=== PATIENT | male | born 1950 | race Caucasian/White ===

== ENCOUNTER 2016-10-21 17:44 | Inpatient (IN) | payer OTHER, BC ==
[~2016-10-21] VITALS: Ht 172.7 cm; Wt 53.2 kg
[2016-10-21 19:35] VITALS: BP 107/77
[2016-10-21] MEDS: ENOXAPARIN 40 MG/0.4 ML DISP.SYRIN. SQ ONE ×2 (20:45→22:23)
[2016-10-21] MEDS ORDERED: MORPHINE SULFATE 2 MG/ML DISP.SYRIN. IV PRN (20:45)
[2016-10-21] MEDS ORDERED: HALOPERIDOL LACT 5 MG/ML VIAL. IVP PRN (20:45)
[2016-10-21] MEDS ORDERED: LORAZEPAM 2 MG/ML VIAL IV PRN ×2 (20:45)
[2016-10-21] MEDS ORDERED: NITROGLYCERIN SUBLINGUAL 0.4 MG BOTTLE OF 25. SL PRN (20:45)
[2016-10-21] MEDS ORDERED: DIPHENHYDRAMINE 50 MG/ML VIAL IVP PRN (20:45)
[2016-10-21] MEDS ORDERED: LORAZEPAM 1 MG TABLET. PO PRN (20:45)
--- NOTE | 2016-10-21 20:46 | PDOC1 ---
History and Physical Date of Admission Date of Admission DATE: 10/21/16 TIME: 20:41 Identification/Chief Complaint Chief Complaint chest pain Source Source: Chart review, Patient History of Present Illness History of Present Illness I was called by Dr. Valladares at [facility] to transfer Mr. Ruiz perseted there with angina at rest, r./o ACS with trop neg X3 CV consult eval, and MPI spect showed LVEf 74%, moderate reversible defect inferolateral wall Transferred here for LH cath he asked RN for a beer X3, I asked him how much he drinks "not much, I dont have anything before breakfast" vodka, then beer, then wine. Past Medical History Cardiovascular: No pertinent hx Pulmonary: No pertinent hx GI: No pertinent hx Heme/Onc: No pertinent hx Hepatobiliary: No pertinent hx Psych: No pertinent hx ENT: No pertinent hx Renal/: Other (unk. cr. 1.4 at [facility]) Past Surgical History Past Surgical History: No pertinent history Family History Family History ,prior chief architect, 11 years Family History: No Significant Social History Smoke: <1 pack per day ALCOHOL: heavy Drugs: None Current Problem List Problem List Problems Medical Problems: (1) Chest pain Status: Acute Problems: Current Medications Current Medications Current Medications Multivitamins (Thera M Plus) 1 tab DAILY PO ; Start 10/22/16 at 09:00; Status UNV Folic Acid (Folic Acid) 1 mg DAILY PO ; Start 10/22/16 at 09:00; Status UNV Lorazepam (Ativan) 2 mg PRN Q1HR PRN IV For CIWA 8-14; Start 10/21/16 at 20:45 ; Status UNV Lorazepam (Ativan) 4 mg PRN Q1HR PRN IV For CIWA 15 or greater; Start 10/21/16 at 20:45; Status UNV Haloperidol Lactate (Haldol) 5 mg PRN Q4HRS PRN IVP Hallucinatns,Confusn, Delirium; Start 10/21/16 at 20:45; Status UNV Diphenhydramine HCl (Benadryl) 25 mg PRN Q15MIN PRN IVP EPS symptoms 2'Haldol admin; Start 10/21/16 at 20:45; Status UNV Lorazepam (Ativan) 1 mg PRN Q6HRS PRN PO ANXIETY / AGITATION; Start 10/21/16 at 20:45; Status UNV Allergies Allergies: Coded Allergies: No Known Drug Allergies (Unverified , 10/21/16) ROS General: No: Appetite, Chills, Fatigue, Malaise, Night Sweats, Other PSYCHOLOGICAL ROS: No: Anxiety, Behavioral Disorder, Concentration difficultie , Decreased libido, Depression, Disorientation, Hallucinations, Hostility, Irritablity, Memory difficulties, Mood Swings, Obsessive thoughts, Other, Physical abuse, Sexual abuse, Sleep disturbances, Suicidal ideation Eyes: No Blurry vision, No Decreased vision, No Double vision, No Dry eyes, No Excessive tearing, No Eye Pain, No Itchy Eyes, No Loss of vision, No Other, No Photophobia, No Scotomata, No Uses contacts, No Uses glasses HEENT: No: Epistaxis, Heacaches, Hearing change, Nasal congestion, Nasal discharge, Oral lesions, Other, Sinus pain, Sneezing, Snoring, Sore Throat, Tinnitus, Vertigo, Visual Changes, Vocal changes Respiratory: No: Cough, Hemoptysis, Orthopnea, Other, Pleuritic Pain, SOB with excertion, Shortness of breath, Sputum Changes, Stridor, Tachypnea, Wheezing Cardiovascular: No Chest Pain, No Edema, No Lt Headedness, No Orthopnea, No Other, No Palpitations, No Paroxysmal Noc. Dyspnea Gastrointestinal: No Abdominal Pain, No Constipation, No Diarrhea, No Hematochezia, No Melena, No Nausea, No Other, No Vomiting Genitourinary: No , No , No , No , No , No , No , No Discharge, No Dysuria, No Flank Pain, No Frequency, No Hematuria, No Incontinence, No Other, No Pain, No Retention, No Urgency Musculoskeletal: No Gait Disturbance, No Joint Pain, No Joint Stiffness, No Joint Swelling, No Muscle Pain, No Muscular Weakness, No Other, No Pain In:, No Swelling In: Neurological: No Behavorial Changes, No Bowel/Bladder ControlChng, No Confusion , No Dizziness, No Gait Disturbance, No Headaches, No Impaired Coord/balance, No Memory Loss, No Numbness/Tingling, No Other, No Seizures, No Speech Problems , No Tremors, No Visual Changes, No Weakness Skin: No Acne, No Dry Skin, No Eczema, No Hair Changes, No Lumps, No Mole Changes, No Mottling, No Nail Changes, No Other, No Pruritus, No Rash, No Skin Lesion Changes Physical Exam General: Alert, Oriented X3, Cooperative, No acute distress HEENT: Atraumatic, Mucous membr. moist/pink, Other (poor dentition) Lungs: Clear to auscultation Heart: S1S2, no murmurs Abdomen: Normal bowel sounds, Soft Rectal Exam: not examined Extremities: No edema, Normal pulses Skin: No significant lesion Neuro: Normal gait, Normal speech, Normal tone, Sensation intact Vitals Vitals Vital Signs Date Time Temp Pulse Resp B/P Pulse Ox O2 Delivery O2 Flow Rate FiO2 10/21/16 19:35 98.4 66 18 107/77 99 Room Air 98.4 VTE Prophylaxis Ordered VTE Prophylaxis Devices: No VTE Pharmacological Prophylaxi: Yes Assessment/Plan Assessment/Plan angina at rest, r./o at [facility] with trop neg X3 MPI spect showed LVEf 74%, moderate reversible defect inferolateral wall admit for LH cath CKD 3, Cr. 1.4, 1.5 hydrate overnight, consider bicarb or mucomyst in AM at CV discretion EtOH use and abuse, poss dependence, he asked RN for a beer X3, will give one beer, put on CIWS protocol, MVI, thiamine and folate tobacco use MARYCRUZ Prakash MD Oct 21, 2016 20:46
[2016-10-21] MEDS ORDERED: NICOTINE 14MG PATCH. TD PRN (21:15)
[2016-10-21] MEDS ORDERED: LORAZEPAM 1 MG TABLET. PO ONE (21:30)
[2016-10-21] MEDS: THIAMINE 100 MG TABLET. PO SCH (22:23)
[2016-10-21] MEDS: IV NORMAL SALINE 1000ML BAG 1,000 ML IV SCH (22:26)
[2016-10-21 23:00] VITALS: BP 117/65
[2016-10-22] VITALS (15 sets, daily range): BP systolic 116–183; BP diastolic 57–104
--- NOTE | 2016-10-22 00:01 | ACF ---
Admission Forms Criteria CARDIOLOGY GRG Clinical Indications for Admission to Inpatient Care ( Place 'X' for any and all applicable criteria): Hospital admission is needed for appropriate care of the patient because of ANY ONE of the following (1): [ ] I. Hemodynamic instability as indicated by ALL of the following (1)(2)(3) (4)(5) [ ]a) Vital signs or other findings not as expected for chronic patient condition or baseline [ ]b) Instability indicated by ANY ONE of the following: [ ]i) Hypotension [ ]ii) Symptomatic Tachycardia unresponsive to treatment ( e.g., analgesia, fluids, sedation as indicated) [ ]iii) Inadequate perfusion indicated by ANY ONE of the following: [ ] 1) Lactic acidosis (> 2 mmol/L) [ ] 2) New abnormal capillary refill (> 3 seconds) [ ] 3) Reduced urine output [ ] 4) New altered mental status [ ]iv) Orthostatic vital sign changes unresponsive to treatment (e.g., fluids) [ ]v) IV inotropic or vasopressor medication required to maintain adequate blood pressure or perfusion [ ] II. Severe heart failure as indicated by ANY ONE of the following(17)(18) [ ]a) Respiratory distress [ ]b) Hypotension [ ]c) Anasarca (refractory to outpatient therapy) [ ]d) Cardiac arrhythmias of immediate concern [ ]e) Myocardial ischemia [ ] III. Cardiac arrhythmias or findings of immediate concern indicated by ANY ONE of the following (19)(20): [ ] a) Heart rhythms that are inherently dangerous or unstable indicated by ANY ONE of the following (21)(22)(23): [ ] i) Resuscitated ventricular fibrillation or cardiac arrest [ ] ii) Ventricular escape rhythm [ ] iii) Sustained ventricular tachycardia (30 seconds or more of ventricular rhythm at greater than 100 beats per minute) [ ] iv) Nonsustained ventricular tachycardia and ANY ONE of the following: [ ] 1) Suspected cardiac ischemia as cause or consequence of ventricular tachycardia [ ] 2) In setting of acute myocarditis [ ] b) Unstable cardiac conduction defects indicated by ANY ONE of the following(23)(24)(25) [ ] i) Type II second-degree atrioventricular block [ ]ii) Third-degree atrioventricular block [ ]iii) New-onset left bundle branch block with suspected myocardial ischemia [ ]c) Any heart rhythm and ANY ONE of the following (21)(22)(26)(27) (28) [ ] i) Continuous long-term ECG monitoring needed (e.g., initiation of drug requiring monitoring for more than 24 hours) [ ] ii) Patient has automatic implanted cardioverter defibrillator that is repeatedly firing, malfunctioning, or in need of immediate adjustment of settings beyond the scope of ambulatory or observation care [ ]d) Heart rhythms of concern due to ANY ONE of the following: [ ] i) Hypotension [ ] ii) Respiratory distress [ ] iii) Association with other significant symptoms (e.g., bradycardia with syncope or ongoing dizziness, supraventricular tachycardia with chest pain (14)(15)(17) [ ] IV. Monitoring for cardiac contusion beyond the scope of observation care needed [A](30)(31)(32) [ ] V. Surgical or device complication (e.g., valve replacement complication , pacemaker dysfunction) (35)(41)(44)(45)(46) [ ] . Inpatient palliative care needed. [B](49) Also use Inpatient Palliative Care Criteria [ ] VII. Nonbacterial thrombotic (marantic) endocarditis (36)(43)(47)(48) [X] VIII. Cardiology condition, symptom, or finding for which emergency and observation care has failed or are not considered appropriate. [ ] IX. Acute valvular disease requiring inpatient as indicated by ANY ONE of the following (41) [ ]a) Acute valvular regurgitation (42) [ ]b) Noninfectious valvulitis (43) [ ]c) Obstructive valve thrombosis [ ]d) Paravalvular leak [ ]e) Other significant valvular disorder remaining after emergency or observation level of care (as appropriate) [ ]X. Pericardial disease requiring inpatient treatment as indicated by ANY ONE of the following (33)(34)(35)(36)(37) [ ]a) Suspected tamponade (38)(39)(40) [ ]b) Hemopericardium [ ]c) Other significant pericardial disorder remaining after emergency or observation level of care (as appropriate) [ ] XI. Cardiac ischemia beyond scope of emergency and observation care. [ ] XII. Hypertension requiring inpatient treatment as indicated by ANY ONE of the following (6)(7)(8) [ ]a) SBP greater than 220 mm Hg or DBP greater than 120 mmHg despite treatment [ ]b) SBP greater than 140 mm Hg or DBP greater than 100 mm Hg with evidence of acute end organ damage as indicated by ANY ONE of the following [ ] i) Encephalopathy [ ] ii) Acute renal failure as indicated by new onset of ANY ONE of the following (9)(10)(11)(12)(13) [ ]1) 3-fold rise in serum creatinine from baseline [ ]2) Serum creatinine greater than 4 mg/dL ( 354 micromoles/L) with acute rise greater than 0.5 mg/dL (44.2 micromoles/L) [ ]3) Reduction of more than 75% in estimated glomerular filtration rate from baseline [ ]4) Estimated glomerular filtration rate less than 35 mL/min/1.73m2 (0.59 mL/sec/1.73m2) in child up to 18 years of age [ ]5) Cessation of urine output indicated by ALL of the following [ ]A. Adequate volume status [ ]B. Inadequate urine output as indicated by ANY ONE of the following [ ]a. Urine output less than 0.3 mL/kg/hr for 24 hours [ ]b. Anuria (urine output less than 0.1 mL/kg/hr) for 12 hours [ ] iii) Aortic dissection [ ] iv) Myocardial Ischemia [ ] v) Left ventricular heart failure [ ]vi) Retinal Hemorrhage [ ]vii) Other significant finding [ ]c) Hypertension in child requiring inpatient treatment as indicated by ALL of the following(14)(15)(16) [ ] i) Outpatient treatment not effective, not available, or not appropriate [ ]ii) SBP or DBP greater than 95th percentile for age [ ]iii) Evidence of acute end organ damage as indicated by ANY ONE of the following [ ]1) Altered mental status [ ]2) Acute renal failure as indicated by new onset of ANY ONE of the following(9)(10)(11)(12)(13) [ ]A. 3-fold rise in serum creatinine from baseline [ ]B. Serum creatinine greater than 4 mg/dL (354 micromoles/L) with acute rise greater than 0.5 mg/dL (44.2 micromoles/L) [ ]C. Reduction of more than 75% in estimated glomerular filtration rate from baseline [ ]D. Estimated glomerular filtration rate less than 35 mL/min/1.73m2 (0.59 mL/sec/1.73m2) in child up to 18 years of age [ ]E. Cessation of urine output indicated by ALL of the following [ ]a. Adequate volume status [ ]b. Inadequate urine output as indicated by ANY ONE of the following [ ]i) Urine output less than 0.3 mL/kg/hr for 24 hours [ ]ii) Anuria ( urine output less than 0.1 mL/kg/hr) for 12 hours [ ]3) Severe headache [ ]4) Visual disturbance [ ]5) Retinal hemorrhage [ ]6) Other significant finding [ ]XIII. Complications of transplanted heart indicated by ANY ONE of the following(61): [ ]a) Acute graft rejection requiring inpatient management (eg, intravenous immunosuppression)(62)(63) [ ]b) Acute graft heart failure indicated by ANY ONE of the following(64): [ ]i) Hemodynamic instability [ ]ii) Cardiac arrhythmias of immediate concern [ ]iii) Pulmonary edema that is very severe (eg, mechanical ventilation needed, imminent or likely, need for 100% oxygen to keep oxygen saturation above 90%) [ ]iv) Pulmonary edema that is persistent as indicated by ALL of the following: [ ]1) New need for oxygen therapy to keep oxygen saturation above 90% (or increased FiO2 need from baseline) [ ]2) Has not improved sufficiently with emergency department or observation care IV diuretics or other heart failure treatments[E] [ ]v) Altered mental status that is severe or persistent [ ]vi) Increased creatinine (new on laboratory test) with reduction of more than 50% in estimated glomerular filtration rate from baseline [ ]vii) Progressively (ongoing) rising creatinine (known from past laboratory test) with reduction of more than 25% in estimated glomerular filtration rate from baseline [ ]viii) Acute renal failure [ ]ix) Acute peripheral ischemia (eg, examination shows pulseless, cool, mottled, or cyanotic extremity) [ ]x) Pulmonary artery catheter monitoring needed [ ]xi) Other sign or symptom of heart failure requiring inpatient treatment (ie, too severe or not responsive to outpatient and observation care treatment) [ ]c) Infection requiring inpatient management (eg, Hemodynamic instability, need for intravenous antimicrobial treatment)(66)(67)(68)(69)(70) [ ]d) Cardiac allograft vasculopathy requiring inpatient management ( eg evidence of cardiac ischemia)(71) [ ]e) Other complication of transplanted heart (eg, stroke, severe pulmonary hypertension, severe valvular dysfunction) requiring inpatient management(72) The original [facility] content created by [facility] has been revised. The portions of the content which have been revised are identified through the use of italic text or in bold, and [facility] has neither reviewed nor approved the modified material. All other unmodified content is copyright [facility]. Please see references footnoted in the original [facility] edition 2016 Admission Criteria Met?: Yes ROSE MARIE ANTOINE Oct 22, 2016 00:01
[2016-10-22 04:42] LABS: BASO # 0.1 x10^3/uL (0.0-0.2); BASO % 1 % (0-3); EOS % 3 % (0-3); HEMATOCRIT 33.8 % (39.0-53.0); HEMOGLOBIN 11.3 g/dL (13.0-17.5); LYMPH # 2.3 x10^3/uL (1.0-4.8); LYMPH % 32 % (24-48); MEAN CORPUSCULAR HEMOGLOBIN 31 pg (25-35); MEAN CORPUSCULAR HGB CONC 33 g/dL (31-37); MEAN CORPUSCULAR VOLUME 93 fL (79-100); MONO % 10 % (0-9); NEUT % 54 % (31-73); PLATELET COUNT 252 x10^3/uL (140-400); RED BLOOD COUNT 3.65 x10^6/uL (4.30-5.70); RED CELL DISTRIBUTION WIDTH 15.1 % (11.5-14.5); WHITE BLOOD COUNT 7.2 x10^3/uL (4.0-11.0)
[2016-10-22 05:00] LABS: ALBUMIN 3.1 g/dL (3.4-5.0); ALBUMIN/GLOBULIN RATIO 0.8 (1.0-1.7); CALCIUM 8.8 mg/dL (8.5-10.1); CHOLESTEROL/HDL RATIO 3.8; CREATININE 1.2 mg/dL (0.7-1.3); GFR 60.4; POTASSIUM 4.2 mmol/L (3.5-5.1); TOTAL BILIRUBIN 0.1 mg/dL (0.2-1.0); TOTAL PROTEIN 6.8 g/dL (6.4-8.2)
[2016-10-22 05:13] LABS: PROTHROMBIN TIME PATIENT 12.9 SEC (11.7-14.0)
[2016-10-22] MEDS: IV NORMAL SALINE 1000ML BAG 1,000 ML IV SCH ×2 (06:45→12:55)
[2016-10-22] MEDS ORDERED: FENTANYL PF 100 MCG/2 ML VIAL. ONE (07:11)
[2016-10-22] MEDS ORDERED: VERAPAMIL 5 MG/2 ML VIAL. ONE (07:11)
[2016-10-22] MEDS ORDERED: HEPARIN for IV BOLUS 10,000 UNIT/10 ML VIAL. ONE (07:11)
[2016-10-22] MEDS ORDERED: NITROGLYCERIN 200 MCG/2 ML SYRINGE FOR CATH/VASC LAB. ONE (07:11)
[2016-10-22] MEDS ORDERED: MIDAZOLAM HCL 2 MG/2 ML VIAL. ONE (07:12)
[2016-10-22] MEDS ORDERED: LIDOCAINE 2% 20 ML VIAL. ONE (07:30)
[2016-10-22] MEDS ORDERED: IOHEXOL 300 MG/ML 100ML VIAL. ONE (07:30)
[2016-10-22] MEDS ORDERED: HEPARIN for ARTERIAL LINE 1,500 ML ONE (07:30)
[2016-10-22] MEDS ORDERED: IOHEXOL 300 MG/ML 100ML VIAL. IART ONE (08:00)
[2016-10-22] MEDS ORDERED: MIDAZOLAM HCL 2 MG/2 ML VIAL. IV ONE (08:00)
[2016-10-22] MEDS ORDERED: FENTANYL PF 100 MCG/2 ML VIAL. IV ONE (08:00)
[2016-10-22] MEDS ORDERED: LIDOCAINE 2% 20 ML VIAL. IJ ONE (08:00)
[2016-10-22] MEDS ORDERED: VANCOMYCIN 1GM IVPB FOR OMNI 250 ML IV ONE (08:21)
[2016-10-22] MEDS ORDERED: VANCOMYCIN 1 GM in IV NORMAL SALINE 250ML 250 ML IV ONE (08:35)
[2016-10-22] MEDS ORDERED: HEPARIN for IV BOLUS 10,000 UNIT/10 ML VIAL. IV ONE (08:35)
[2016-10-22] MEDS ORDERED: HEPARIN for IV BOLUS 10,000 UNIT/10 ML VIAL. IART ONE (08:45)
[2016-10-22] MEDS ORDERED: NITROGLYCERIN 200 MCG/2 ML SYRINGE FOR CATH/VASC LAB. IART ONE (08:45)
[2016-10-22] MEDS ORDERED: VERAPAMIL 5 MG/2 ML VIAL. IART ONE (08:45)
[2016-10-22] MEDS ORDERED: NITROGLYCERIN 200 MCG/2 ML SYRINGE FOR CATH/VASC LAB. IV ONE (08:49)
[2016-10-22] MEDS: FOLIC ACID 1 MG TABLET PO SCH (09:00)
[2016-10-22] MEDS: THIAMINE 100 MG TABLET. PO SCH (09:00)
[2016-10-22] MEDS: MULTIVITAMIN with MINERAL TABLET. PO SCH (09:00)
--- NOTE | 2016-10-22 10:08 | CARD ---
APPROVED REPORT Procedure(s) performed: Coronary Angiography + Peripheral angiography HISTORY The patient is a 66 year-old male with a history of : tobacco history() . INDICATION The indication(s) include : positive stress test, unstable angina . PROCEDURE NARRATIVE After appropriate informed consent was obtained the patient was brought to the catheterization [facility] for further evaluation of an abnormal stress test and persistent chest pain. There was extreme difficulty obtaining arterial access due to the patient's vasculopathy. Initial att empts to advance a Glidewire in the right radial and ulnar arteries was unsuccessful despite the gera ent having a fairly robust Shamir's examination. Next, the left common femoral artery was cannulated a nd a Glidewire was unable to be advanced and an injection through the needle confirmed distal externa l iliac occlusion with collateralization via the inferior epigastric. Subsequently, the right common femoral artery was accessed and this too was also occluded and diffusely diseased. Next, we obtained radial access in the left radial artery in were able to insert a 6 Panamanian sheath. Next, a 5 Panamanian diagnostic JR4 catheter was used to manipulate the guidewire to the ascending aorta and sinus. Diagnostic angiography was performed using a JR4 and JL 3.5 catheters. Subsequent, digital subtraction angiography was performed of the distal aorta and iliac vessels as well as the arch vess els. Findings: Left main has no significant obstructive disease The LAD is a moderate to large caliber vessel that wraps around the apex and has a proximal to mid 50 -60% stenosis. There are 2 moderate-sized diagonals without any significant disease. The ramus is a small to moderate size vessel with a mid 50% stenosis. The left circumflex is a moderate caliber vessel without any significant obstructive disease. The right coronary artery is a moderate caliber vessel with a long calcified proximal to mid 80-90% s tenosis. The distal vessel is free of significant disease. PERIPHERAL ANGIOGRAPHY: Aorta: No significant disease. Right renal: Severe ostial 80% stenosis. Left renal: Severe ostial 90% stenosis. RCIA: Mild disease of less than 30%. REIA: Occluded in the mid segment. RIIA: Patent with moderate diffuse disease providing collaterals to the RCFA RCFA: Diffuse disease and heavily calcified with 90% stenosis. LCIA: Occluded SHILOH: Occluded LIIA: Not well visualized. LCFA: Occluded proximally, distal vessel fills via intraabdominal collaterals. Aortic arch angiography reveals no significant disease. Despite using 5 Panamanian diagnostic catheters there was difficulty manipulating the catheters and arter iospasm occurred in the left radial artery. Heparin 5000 units was administered and there was difficu lty advancing 6 Panamanian guide catheters and therefore an intervention of the right coronary artery was deferred. We will discuss the risks and benefits of brachial artery access with the patient. Conclusion 1. 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 2. Severe bilateral renal artery stenosis. 3. 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
--- NOTE | 2016-10-22 11:49 | PDOC ---
PROGRESS NOTES Chief Complaint Chief Complaint ACS ASSESSMENT AND PLAN: 1. Angina at rest: eng enzymes but MPI spect showed moderate reversible defect inferolateral wall, LVEF 74%. cath done this AM, results pending 2. CKD3: cont IVF for now; rpt labs in PM post dye load with cath 3. EtOH dependence: on CIWA protocol. MVI, thiamine and folate 4. Tobacco dependence: hold nicotine patch for now. 5. Prophylaxis: H2B, heparin 6. PCM: severe. supplements Vitals Vitals Vital Signs Date Time Temp Pulse Resp B/P Pulse Ox O2 Delivery O2 Flow Rate FiO2 10/22/16 10:30 56 130/69 10/22/16 10:06 98.0 20 94 Room Air 98.0 10/22/16 09:03 2.0 Physical Exam General: Alert, Oriented X3, Cooperative, No acute distress Abdomen: Normal bowel sounds, Soft Extremities: No edema, Normal pulses Skin: No significant lesion Labs LABS Laboratory Tests Test 10/22/16 04:08 White Blood Count 7.2x10^3/uL (4.0-11.0) Red Blood Count 3.65x10^6/uL (4.30-5.70) Hemoglobin 11.3g/dL (13.0-17.5) Hematocrit 33.8% (39.0-53.0) Mean Corpuscular Volume 93fL (79-100) Mean Corpuscular Hemoglobin 31pg (25-35) Mean Corpuscular Hemoglobin Concent 33g/dL (31-37) Red Cell Distribution Width 15.1% (11.5-14.5) Platelet Count 252x10^3/uL (140-400) Neutrophils (%) (Auto) 54% (31-73) Lymphocytes (%) (Auto) 32% (24-48) Monocytes (%) (Auto) 10% (0-9) Eosinophils (%) (Auto) 3% (0-3) Basophils (%) (Auto) 1% (0-3) Neutrophils # (Auto) 3.9x10^3uL (1.8-7.7) Lymphocytes # (Auto) 2.3x10^3/uL (1.0-4.8) Monocytes # (Auto) 0.7x10^3/uL (0.0-1.1) Eosinophils # (Auto) 0.2x10^3/uL (0.0-0.7) Basophils # (Auto) 0.1x10^3/uL (0.0-0.2) Prothrombin Time 12.9SEC (11.7-14.0) Prothromb Time International Ratio 1.0 (0.8-1.1) Sodium Level 141mmol/L (136-145) Potassium Level 4.2mmol/L (3.5-5.1) Chloride Level 103mmol/L (98-107) Carbon Dioxide Level 28mmol/L (21-32) Anion Gap 10 (6-14) Blood Urea Nitrogen 25mg/dL (8-26) Creatinine 1.2mg/dL (0.7-1.3) Estimated GFR (Cockcroft-Gault) 60.4 BUN/Creatinine Ratio 21 (6-20) Glucose Level 103mg/dL (70-99) Calcium Level 8.8mg/dL (8.5-10.1) Total Bilirubin 0.1mg/dL (0.2-1.0) Aspartate Amino Transf (AST/SGOT) 11U/L (15-37) Alanine Aminotransferase (ALT/SGPT) 12U/L (16-63) Alkaline Phosphatase 61U/L (46-116) Total Protein 6.8g/dL (6.4-8.2) Albumin 3.1g/dL (3.4-5.0) Albumin/Globulin Ratio 0.8 (1.0-1.7) Triglycerides Level 97mg/dL (0-150) Cholesterol Level 193mg/dL (0-200) LDL Cholesterol, Calculated 123mg/dL (0-100) VLDL Cholesterol, Calculated 19mg/dL (0-40) HDL Cholesterol 51mg/dL (40-60) Cholesterol/HDL Ratio 3.8 Review of Systems Review of Systems s/p cath. no CP, no SOB MIRI OSEGUERA MD Oct 22, 2016 11:49
[2016-10-22] MEDS: ASPIRIN ENTERIC COATED 325 MG TABLET.DR. PO SCH (12:15)
[2016-10-22 18:36] LABS: CALCIUM 8.5 mg/dL (8.5-10.1); CREATININE 1.3 mg/dL (0.7-1.3); GFR 55.1; POTASSIUM 4.4 mmol/L (3.5-5.1)
[2016-10-23] MEDS: IV NORMAL SALINE 1000ML BAG 1,000 ML IV SCH ×2 (02:45→12:36)
[2016-10-23 03:25] VITALS: BP 168/80
[2016-10-23 07:00] VITALS: BP 195/83
[2016-10-23] MEDS: FOLIC ACID 1 MG TABLET PO SCH (09:11)
[2016-10-23] MEDS: THIAMINE 100 MG TABLET. PO SCH (09:11)
[2016-10-23] MEDS: MULTIVITAMIN with MINERAL TABLET. PO SCH (09:12)
[2016-10-23] MEDS: ASPIRIN ENTERIC COATED 325 MG TABLET.DR. PO SCH (09:12)
[2016-10-23 09:13] VITALS: BP 153/67
--- NOTE | 2016-10-23 10:58 | PDOC3 ---
Discharge Summary Visit Information Date of Admission: Oct 21, 2016 Date of Discharge: Oct 23, 2016 Admitting Diagnosis Comment: 1. Angina s/p cardiac cath no stents placed 2. CKD3: c 3. EtOH dependence: 4. Tobacco dependence: Final Diagnosis Problems Medical Problems: (1) Chest pain Status: Acute Brief Hospital Course Allergies Allergies Coded Allergies Type Severity Reaction Last Updated Verified No Known Drug Allergies 10/21/16 No Vital Signs Vital Signs Date Time Temp Pulse Resp B/P Pulse Ox O2 Delivery O2 Flow Rate FiO2 10/23/16 09:13 80 153/67 10/23/16 07:00 98.0 17 96 Room Air 98.0 10/22/16 12:25 2.0 Lab Results Laboratory Tests Test 10/22/16 04:08 10/22/16 18:10 White Blood Count 7.2x10^3/uL (4.0-11.0) Red Blood Count 3.65x10^6/uL (4.30-5.70) Hemoglobin 11.3g/dL (13.0-17.5) Hematocrit 33.8% (39.0-53.0) Mean Corpuscular Volume 93fL (79-100) Mean Corpuscular Hemoglobin 31pg (25-35) Mean Corpuscular Hemoglobin Concent 33g/dL (31-37) Red Cell Distribution Width 15.1% (11.5-14.5) Platelet Count 252x10^3/uL (140-400) Neutrophils (%) (Auto) 54% (31-73) Lymphocytes (%) (Auto) 32% (24-48) Monocytes (%) (Auto) 10% (0-9) Eosinophils (%) (Auto) 3% (0-3) Basophils (%) (Auto) 1% (0-3) Neutrophils # (Auto) 3.9x10^3uL (1.8-7.7) Lymphocytes # (Auto) 2.3x10^3/uL (1.0-4.8) Monocytes # (Auto) 0.7x10^3/uL (0.0-1.1) Eosinophils # (Auto) 0.2x10^3/uL (0.0-0.7) Basophils # (Auto) 0.1x10^3/uL (0.0-0.2) Prothrombin Time 12.9SEC (11.7-14.0) Prothromb Time International Ratio 1.0 (0.8-1.1) Sodium Level 141mmol/L (136-145) 140mmol/L (136-145) Potassium Level 4.2mmol/L (3.5-5.1) 4.4mmol/L (3.5-5.1) Chloride Level 103mmol/L (98-107) 104mmol/L (98-107) Carbon Dioxide Level 28mmol/L (21-32) 28mmol/L (21-32) Anion Gap 10 (6-14) 8 (6-14) Blood Urea Nitrogen 25mg/dL (8-26) 25mg/dL (8-26) Creatinine 1.2mg/dL (0.7-1.3) 1.3mg/dL (0.7-1.3) Estimated GFR (Cockcroft-Gault) 60.4 55.1 BUN/Creatinine Ratio 21 (6-20) Glucose Level 103mg/dL (70-99) 109mg/dL (70-99) Calcium Level 8.8mg/dL (8.5-10.1) 8.5mg/dL (8.5-10.1) Total Bilirubin 0.1mg/dL (0.2-1.0) Aspartate Amino Transf (AST/SGOT) 11U/L (15-37) Alanine Aminotransferase (ALT/SGPT) 12U/L (16-63) Alkaline Phosphatase 61U/L (46-116) Total Protein 6.8g/dL (6.4-8.2) Albumin 3.1g/dL (3.4-5.0) Albumin/Globulin Ratio 0.8 (1.0-1.7) Triglycerides Level 97mg/dL (0-150) Cholesterol Level 193mg/dL (0-200) LDL Cholesterol, Calculated 123mg/dL (0-100) VLDL Cholesterol, Calculated 19mg/dL (0-40) HDL Cholesterol 51mg/dL (40-60) Cholesterol/HDL Ratio 3.8 Laboratory Tests Test 10/22/16 18:10 Sodium Level 140mmol/L (136-145) Potassium Level 4.4mmol/L (3.5-5.1) Chloride Level 104mmol/L (98-107) Carbon Dioxide Level 28mmol/L (21-32) Anion Gap 8 (6-14) Blood Urea Nitrogen 25mg/dL (8-26) Creatinine 1.3mg/dL (0.7-1.3) Estimated GFR (Cockcroft-Gault) 55.1 Glucose Level 109mg/dL (70-99) Calcium Level 8.5mg/dL (8.5-10.1) Brief Hospital Course Mr. Ruiz is a 66 old male, alcoholic admitted for CP. Underwent cardiac cath, no stents placed/ NO new meds started except for ASA 325 PO qD Pt seen and examined Consults: cards Proc: LHC Time 31 mins > 50% education and counselling on lifestyle habits Discharge Information Condition at Discharge: Improved, Stable Disposition/Orders: D/C to Home DOROTHEA NEGRON MD Oct 23, 2016 10:58
[2016-10-23 11:00] VITALS: BP 150/82
[2016-10-23] MEDS ORDERED: METOPROLOL TART IMMED RELEASE 25 MG TABLET PO SCH (11:00)
[2016-10-23] MEDS ORDERED: CLOPIDOGREL BISULFATE 75 MG TABLET PO SCH (11:00)
--- NOTE | 2016-10-23 11:15 | PDOC ---
ELENA NICOLE [employer] 10/23/16 1115: CARDIO Progress Notes Date and Time Date of Service 10/23/2016 Time of Evaluation 0940 Subjective Subjective: No Chest Pain, No shortness of breath, No Palpitations, No Dizziness Vitals Vitals Vital Signs Date Time Temp Pulse Resp B/P Pulse Ox O2 Delivery O2 Flow Rate FiO2 10/23/16 09:13 80 153/67 10/23/16 07:00 98.0 17 96 Room Air 98.0 10/22/16 12:25 2.0 Weight Weight [ ] Input and Output Intake and Output Intake and Output 10/23/16 07:00 Intake Total 700 ml Output Total 300 ml Balance 400 ml Intake Oral 700 ml Output Urine Total 300 ml # Voids 2 Laboratory Labs Laboratory Tests Test 10/22/16 18:10 Sodium Level 140mmol/L (136-145) Potassium Level 4.4mmol/L (3.5-5.1) Chloride Level 104mmol/L (98-107) Carbon Dioxide Level 28mmol/L (21-32) Anion Gap 8 (6-14) Blood Urea Nitrogen 25mg/dL (8-26) Creatinine 1.3mg/dL (0.7-1.3) Estimated GFR (Cockcroft-Gault) 55.1 Glucose Level 109mg/dL (70-99) Calcium Level 8.5mg/dL (8.5-10.1) Physical Exam HEENT: Neck Supple W Full Motion Chest: Symmetric LUNGS: Other (diminished bases) Heart: S1S2, RRR Abdomen: Soft N/T Extremities: No Calf Tenderness, Other (trace LE edema; bilateral LE positive sensation (no paresthesia), arm skin and no claudication with short ambulation) Neurology: alert, oriented, follow commands Other Exams left radial arteriotomy site intact, no swelling, erythema. Neurovascular status intact Assessment Assessment 1. Unstable angina with abnormal stress test: notable for 2VD CAD with critical lesion in the RCA. Currently CP free 2. Severe PAD: occluded iliac and groin vessels with lumbar and internal iliac collaterals supplying the lower extremities. 3. Severe bilateral TITO 4. HTN: labile 4. Chronic Alcoholism 5. Tobaccoism Recommendations 1. Start on metoprolol, Imdur, lipitor (Rx provided), No ACEi/ARB at this point with TITO 2. ETOH withdrawal protocol per PCP 3. Limited access arterially during [facility] prompting left radial approach. Will need brachial arterial access for future PCI/renal intervention. 4. Discussed with primary mobile paramedical examiner and ok to DC to home today and encouraged to have appointment next week to discuss possible intervention. 5. Encouraged significant lifestyle modifications. 6. Smoking cessation, ETOH cessation 7. Continue with ECASA (81 mg) and will start on plavix (Rx provided) BRADY SANDERS MD 10/23/16 1549: CARDIO Progress Notes Plan Plan Patient seen and examined. Agree with nurse practitioner note. No acute events overnight. The patient denies any chest pain today. I had a long discussion with Yosvany about his pathology. He absolutely needs to quit smoking and we discussed that we should continue medical therapy for his coronary disease unless he has intractable angina at which point a high risk PCI could be performed. He currently does not have any lifestyle limiting claudication or nonhealing wounds in his lower extremities and given his current state he would be a poor surgical candidate. After stabilization on outpatient basis if he chooses to follow-up given his social situation we will refer him to vascular surgery. ELENA NICOLE APRN Oct 23, 2016 11:15 BRADY SANDERS MD Oct 23, 2016 15:49
[2016-10-23 12:35] VITALS: BP 150/82
[2016-10-23] MEDS ORDERED: ISOSORBIDE MONONITRATE ER 30 MG TAB.ER.24H PO SCH (14:00)
[2016-10-23] MEDS ORDERED: ISOS20TA2 PO (14:48)
[2016-10-23] MEDS ORDERED: ATOR10TA PO (14:49)
[2016-10-23] MEDS ORDERED: METO25TA4 PO (15:51)
[2016-10-23] MEDS ORDERED: CLOP75TA PO (15:51)
[2016-10-23] MEDS ORDERED: ATORVASTATIN CALCIUM 10 MG TABLET. PO SCH (21:00)
[2016-10-24] MEDS ORDERED: ASPIRIN ENTERIC COATED 325 MG TABLET.DR. PO SCH (08:00)
== END 2016-10-24 00:01 | disposition home or self-care (01) | DRG 286 ==
LOC: 2 NORTH 19:45
PROVIDERS: ADMIT Internal Medicine; ATTEND Internal Medicine
PROC: B2111ZZ Fluoroscopy of Multiple Coronary Arteries using Low Osmolar Contrast (ICD-10-PCS; principal; 2016-10-22)
PROC: B4181ZZ Fluoroscopy of Bilateral Renal Arteries using Low Osmolar Contrast (ICD-10-PCS; 2016-10-22)
PROC: B4191ZZ Fluoroscopy of Lumbar Arteries using Low Osmolar Contrast (ICD-10-PCS; 2016-10-22)
PROC: B41D1ZZ Fluoroscopy of Aorta and Bilateral Lower Extremity Arteries using Low Osmolar Contrast (ICD-10-PCS; 2016-10-22)
DX: I25.110 Atherosclerotic heart disease of native coronary artery with unstable angina pectoris (principal); E43 Unspecified severe protein-calorie malnutrition; Z68.1 Body mass index [BMI] 19.9 or less, adult; F10.20 Alcohol dependence, uncomplicated; F17.200 Nicotine dependence, unspecified, uncomplicated; I12.9 Hypertensive chronic kidney disease with stage 1 through stage 4 chronic kidney disease, or unspecified chronic kidney disease; N18.3 Chronic kidney disease, stage 3 (moderate)
CPT/HCPCS: 36415; 75625; 80048; 80053; 80061; 85027; 85610; 93454; J1650; J2060; J2250; J3010; J3370; J3490; J7030; J7050; Q9967